=== PATIENT | female | born 1995 | race African-American/Black ===

== ENCOUNTER 2018-03-05 09:14 | Emergency (ER) | payer SELFPAY | END 2018-03-05 10:35 | disposition home or self-care (01) | LOC: ERS 09:14 | DX: B35.3 Tinea pedis (principal) | CPT/HCPCS: 99283 ==

== ENCOUNTER 2018-07-31 08:46 | Emergency (ER) | payer SELFPAY ==
[2018-07-31] MEDS ORDERED: Ibuprofen 200 MG TAB ONE (09:31)
[2018-07-31] MEDS ORDERED: Dexamethasone 4 mg/ml Vial ONE (09:31)
--- NOTE | 2018-07-31 10:21 | RAD ---
2 VIEW CHEST: Date: 07/31/18 COMPARISON: 01/16/18. INDICATION: Dyspnea. FINDINGS: Lungs are hyperinflated. There is no consolidation, effusion, or pneumothorax. Cardiac silhouette is normal in size. IMPRESSION: 1. Hyperinflated lungs. 2. No focal consolidation. POS: [facility]
== END 2018-07-31 10:32 | disposition home or self-care (01) ==
LOC: ERS 08:46
DX: J44.1 Chronic obstructive pulmonary disease with (acute) exacerbation (principal); Z79.899 Other long term (current) drug therapy
CPT/HCPCS: 71046; 94640; J1100; J7620

== ENCOUNTER 2019-06-02 04:41 | Emergency (ER) | payer SELFPAY ==
[2019-06-02] MEDS ORDERED: Albuterol Sulfate 2.5 mg/3 ml Neb ONE (04:58)
[2019-06-02] MEDS ORDERED: Albuterol Sulfate 2.5 mg/0.5 ml Neb ONE ×3 (04:58→06:04)
[2019-06-02] MEDS ORDERED: predniSONE 20 MG TAB ONE (05:02)
== END 2019-06-02 06:27 | disposition home or self-care (01) ==
LOC: ERS 04:41
DX: J45.901 Unspecified asthma with (acute) exacerbation (principal); Z79.51 Long term (current) use of inhaled steroids
CPT/HCPCS: J7512; J7611; J7620

== ENCOUNTER 2019-08-10 09:32 | Emergency (ER) | payer SELFPAY | END 2019-08-10 11:24 | disposition home or self-care (01) | LOC: ERS 09:32 | DX: K60.2 Anal fissure, unspecified (principal); K59.00 Constipation, unspecified; J45.909 Unspecified asthma, uncomplicated | CPT/HCPCS: 99283 ==